=== PATIENT | female | born 1945 | race Caucasian/White ===

== ENCOUNTER 2018-04-28 23:50 | Inpatient (IN) | payer MEDICARE, BC ==
[2018-04-29] MEDS ORDERED: Ondansetron 4 MG/2 ML SDV IVPUSH ONE (00:07)
[2018-04-29] MEDS ORDERED: Sodium Chloride 0.9% 10 ML Syringe FLUSH PRN (00:07)
[2018-04-29] MEDS ORDERED: Famotidine 20 MG/2 ML SDV IVPUSH ONE (00:08)
[2018-04-29] MEDS: Sodium Chloride 0.9% 1,000 ML IV SCH ×2 (00:16→10:16)
--- NOTE | 2018-04-29 01:17 | EDM.PDOC ---
ED HPI GENERAL MEDICAL PROBLEM - General Chief Complaint: Chest Pain Stated Complaint: chest pain vomiting Time Seen by Provider: 04/28/18 23:53 Source of Information: Reports: Patient History Limitations: Reports: No Limitations - History of Present Illness INITIAL COMMENTS - FREE TEXT/NARRATIVE: The patient presents with chest pain. She says the pain started about 1900 last night. The pain is in the center of her chest. She then got nauseated and vomiting about 3 times. She has no shortness of breath. She has no fever, chills, cough, pain or edema in her legs. She has some epigastric discomfort. She did not take aspirin. She has no history of [place] or hypercholesterolemia. She has no history of diabetes. The pain is better now. Onset: Sudden Duration: Hour(s): Location: Reports: Chest Quality: Reports: Sharp Severity: Moderate Improves with: Reports: None Worsens with: Reports: None Associated Symptoms: Reports: Chest Pain. Denies: Cough, Fever/Chills, Headaches, Nausea/Vomiting, Shortness of Breath Chest Pain Score (Numeric/FACES): 3 - Related Data Allergies Allergy/AdvReac Type Severity Reaction Status Date / Time nickel Allergy Cannot Verified 04/29/18 00:03 Remember Home Meds: Home Meds Carboxymethyl/Glycerin/Poly80 [Refresh Optive Advanced Drops] 1 drop EYEBOTH TID 11/27/15 [History] Docusate Sodium [Colace] 100 mg PO DAILY 11/27/15 [History] Eyelid Cleanser [Ocusoft Lid Scrub Plus] 1 dose EYEBOTH DAILY 11/27/15 [History] Multivit-Min/Iron Fum/Folic AC [Hdmll-Okiiyuw-Bkkyyyjz Tablet] 1 tab PO DAILY [History] Polyethylene Glycol 3350 [MiraLAX] 17 g PO DAILY 11/27/15 [History] Vits A and D/White Pet/Lanolin [A + D Ointment] 42.5 gm TP ASDIRECTED PRN [History] amLODIPine [Norvasc] 5 mg PO DAILY 11/27/15 [History] cycloSPORINE [Restasis] 1 each OP BID 11/27/15 [History] lamoTRIgine [Lamictal] 50 mg PO DAILY 11/27/15 [History] lamoTRIgine [Lamictal] 100 mg PO BEDTIME 10/05/16 [History] risperiDONE [Risperdal] 1 mg PO BEDTIME 11/27/15 [History] traZODone 150 mg PO BEDTIME 11/27/15 [History] LORazepam [Ativan] 0.25 mg PO BEDTIME 04/29/18 [History] LORazepam [Ativan] 1 mg PO DAILY 04/29/18 [History] Sennosides [Senna] 2 tab PO DAILY 04/29/18 [History] Past Medical History HEENT History: Reports: Impaired Vision Other HEENT History: allergic conjunctivitis Cardiovascular History: Reports: Hypertension Gastrointestinal History: Reports: Chronic Constipation, Hiatal Hernia, Inflammatory Bowel Disease Musculoskeletal History: Reports: Osteoporosis Psychiatric History: Reports: Bipolar, Mood Swings, Psych Hospitalization(s), Psychosis, Suicide Attempt, Suicidal Ideation Other Psychiatric History: schizophreniform disorder Endocrine/Metabolic History: Reports: Diabetes, Type II Social & Family History - Family History Family Medical History: Noncontributory - Tobacco Use Smoking Status *Q: Former Smoker Used Tobacco, but Quit: Yes Month/Year Tobacco Last Used: 2008 - Caffeine Use Caffeine Use: Reports: Coffee - Recreational Drug Use Recreational Drug Use: No - Living Situation & Occupation Living situation: Reports: Extended Care Facility Occupation: Disabled ED ROS GENERAL - Review of Systems Review Of Systems: See Below Constitutional: Reports: No Symptoms HEENT: Reports: No Symptoms Respiratory: Reports: No Symptoms Cardiovascular: Reports: Chest Pain Endocrine: Reports: No Symptoms GI/Abdominal: Reports: Abdominal Pain, Nausea, Vomiting. Denies: Diarrhea : Reports: No Symptoms Musculoskeletal: Reports: No Symptoms ED EXAM, GENERAL - Physical Exam Exam: See Below Exam Limited By: No Limitations General Appearance: Alert, No Apparent Distress Ears: Normal External Exam Nose: Normal Inspection Head: Atraumatic, Normocephalic Neck: Normal Inspection Respiratory/Chest: No Respiratory Distress, Lungs Clear, Normal Breath Sounds Cardiovascular: Regular Rate, Rhythm, No Edema, No Murmur GI/Abdominal: Soft, No Organomegaly, No Mass, Tender (Mild tenderness to he epigastric region) EKG INTERPRETATION EKG Date: 04/28/18 Time: 23:58 Rhythm: Other (Sinus bradycardia) Rate (Beats/Min): 55 [place]: Normal P-Wave: Present QRS: Normal ST-T: Normal QT: Normal Course - Vital Signs Last Recorded V/S: Last Vital Signs Temp 97.5 F 04/28/18 23:57 Pulse 64 04/28/18 23:57 Resp 20 04/28/18 23:57 BP 125/78 04/28/18 23:57 Pulse Ox 90 L 04/28/18 23:57 - Orders/Labs/Meds Orders: Active Orders 24 hr Category Date Time Status Cardiac Monitoring [RC] . DIRECTED Care 04/29/18 00:07 Active EKG Documentation Completion [RC] STAT Care 04/29/18 00:08 Active Peripheral IV Care [RC] . DIRECTED Care 04/29/18 00:08 Active Abdomen Ltd [US] Stat Exams 04/29/18 07:04 Ordered Sodium Chloride 0.9% [Normal Saline] 1,000 ml Med 04/29/18 00:15 Active IV ASDIRECTED Sodium Chloride 0.9% [Saline Flush] Med 04/29/18 00:07 Active 10 ml FLUSH ASDIRECTED PRN ED Antiemetic Medication Reflex [OM.PC] Stat Oth 04/29/18 00:07 Ordered Peripheral IV Insertion Adult [OM.PC] Stat Oth 04/29/18 00:07 Ordered Medication Orders Sodium Chloride (Normal Saline) 1,000 mls @ 125 mls/hr IV ASDIRECTED MACK Last Admin: 04/29/18 00:16 Dose: 125 mls/hr Sodium Chloride (Saline Flush) 10 ml FLUSH ASDIRECTED PRN PRN Reason: Keep Vein Open Last Admin: 04/29/18 00:18 Dose: 10 ml Labs: Laboratory Tests 04/29/18 04/29/18 04/29/18 Range/Units 00:30 00:30 00:30 WBC 9.05 (3.98-10.04) K/mm3 RBC 4.32 (3.98-5.22) M/mm3 Hgb 13.4 (11.2-15.7) gm/L Hct 39.1 (34.1-44.9) % MCV 90.5 (79.4-94.8) fl MCH 31.0 (25.6-32.2) pg MCHC 34.3 (32.2-35.5) g/dl RDW Std Deviation 40.0 (36.4-46.3) fL Plt Count 90 L (182-369) K/mm3 MPV 11.7 (9.4-12.3) fl Neut % (Auto) 78.8 H (34.0-71.1) % Lymph % (Auto) 10.5 L (19.3-51.7) % [place] % (Auto) 9.0 (4.7-12.5) % Eos % (Auto) 1.3 (0.7-5.8) Baso % (Auto) 0.2 (0.1-1.2) % Neut # (Auto) 7.13 H (1.56-6.13) K/mm3 Lymph # (Auto) 0.95 L (1.18-3.74) K/mm3 [place] # (Auto) 0.81 H (0.24-0.36) K/mm3 Eos # (Auto) 0.12 (0.04-0.36) K/mm3 Baso # (Auto) 0.02 (0.01-0.08) K/mm3 Manual Slide Review Normal smear Sodium 138 (136-145) mEq/L Potassium 3.6 (3.5-5.1) mEq/L Chloride 100 (98-107) mEq/L Carbon Dioxide 27 (21-32) mEq/L Anion Gap 14.6 (5-15) BUN 12 (7-18) mg/dL Creatinine 0.8 (0.55-1.02) mg/dL Est Cr Clr Drug Dosing 49.38 mL/min Estimated GFR (MDRD) > 60 (>60) mL/min BUN/Creatinine Ratio 15.0 (14-18) Glucose 141 H (80-115) mg/dL Calcium 9.3 (8.5-10.1) mg/dL Total Bilirubin 1.0 (0.2-1.0) mg/dL AST 37 (15-37) U/L ALT 34 (14-59) U/L Alkaline Phosphatase 93 (46-116) U/L Troponin I < 0.017 (0.00-0.056) ng/mL Total Protein 7.0 (6.4-8.2) g/dl Albumin 4.1 (3.4-5.0) g/dl Globulin 2.9 gm/dL Albumin/Globulin Ratio 1.4 (1-2) Lipase TNP Meds: Medications Generic Name Dose Route Start Last Admin Trade Name Freq PRN Reason Stop Dose Admin Sodium Chloride 1,000 mls @ 125 mls/hr 04/29/18 00:15 04/29/18 00:16 Normal Saline IV 125 mls/hr ASDIRECTED MACK Administration Sodium Chloride 10 ml 04/29/18 00:07 04/29/18 00:18 Saline Flush FLUSH 10 ml ASDIRECTED PRN Administration Keep Vein Open Discontinued Medications Generic Name Dose Route Start Last Admin Trade Name Freq PRN Reason Stop Dose Admin Famotidine 20 mg 04/29/18 00:08 04/29/18 00:18 Pepcid IVPUSH 04/29/18 00:09 20 mg ONETIME ONE Administration Iopamidol 100 ml 04/29/18 03:58 04/29/18 04:06 Isovue-370 (76%) IV 04/29/18 03:59 100 ml ONETIME ONE Administration Ondansetron HCl 4 mg 04/29/18 00:07 04/29/18 00:18 Zofran IVPUSH 04/29/18 00:08 4 mg ONETIME ONE Administration - Re-Assessments/Exams Free Text/Narrative Re-Assessment/Exam: 04/29/18 01:16 I ordered an IV NS at 125mL/hr, zofran 4mg IV, pepcid 20mg IV, labs, EKG and a CXR. Her EKG shows a sinus bradycardia with no acute changes. Her CXR looks good. 04/29/18 05:45 Her CBC and CMP look good. Her troponin was normal. Her lipase was >1500. She has never had pancreatitis before. She quit drinking 10 years ago. I got a CT and it shows acute pancreatitis, distended gallbladder. Correlate with right upper quadrant US if indicated and cirrhotic liver. I feel she needs to be admitted. I will admit her to the hospitalist service. 04/29/18 07:19 I have talked to Dr Norris and he accepted the patient. I have added an US of her gallbladder. Departure - Departure Time of Disposition: 07:25 Disposition: Admitted As Inpatient 68 Condition: Fair Clinical Impression: Acute pancreatitis Qualifiers: Pancreatitis type: other Acute pancreatitis complication: no infection or necrosis Qualified Code(s): K85.80 - Other acute pancreatitis without necrosis or infection Referrals: Kathya Giles NP [Primary Care Provider] - Forms: ED Department Discharge - My Orders Last 24 Hours: My Active Orders 04/29/18 00:07 Cardiac Monitoring [RC] . DIRECTED Sodium Chloride 0.9% [Saline Flush] 10 ml FLUSH ASDIRECTED PRN ED Antiemetic Medication Reflex [OM.PC] Stat Peripheral IV Insertion Adult [OM.PC] Stat 04/29/18 00:08 EKG Documentation Completion [RC] STAT Peripheral IV Care [RC] . DIRECTED 04/29/18 00:15 Sodium Chloride 0.9% [Normal Saline] 1,000 ml IV ASDIRECTED 04/29/18 07:04 [place] [US] Stat - Assessment/Plan Last 24 Hours: My Active Orders 04/29/18 00:07 Cardiac Monitoring [RC] . DIRECTED Sodium Chloride 0.9% [Saline Flush] 10 ml FLUSH ASDIRECTED PRN ED Antiemetic Medication Reflex [OM.PC] Stat Peripheral IV Insertion Adult [OM.PC] Stat 04/29/18 00:08 EKG Documentation Completion [RC] STAT Peripheral IV Care [RC] . DIRECTED 04/29/18 00:15 Sodium Chloride 0.9% [Normal Saline] 1,000 ml IV ASDIRECTED 04/29/18 07:04 Stunn [US] Stat
[2018-04-29] MEDS ORDERED: Iopamidol 755 Mg/ML 200 ML Bottle IV ONE (03:58)
--- NOTE | 2018-04-29 06:09 | CR ---
Chest: Portable view of the chest was obtained. Comparison: No prior chest x-ray. Heart size and mediastinum are within normal limits. Nodular density is noted within the left base most likely representing slight scarring. Lungs otherwise are clear. Bony structures show previous right shoulder surgery. Mild scoliosis is noted within the spine. Impression: 1. Incidental findings. Nothing acute is identified. Diagnostic code #2
--- NOTE | 2018-04-29 06:36 | CT ---
CT abdomen and pelvis Technique: Multiple axial sections were obtained from above the dome of the diaphragm inferiorly to the pubic symphysis. Intravenous contrast and oral contrast have been given. Delayed images were also obtained through the abdomen and pelvis. Comparison: Prior CT abdomen and pelvis exam of 03/03/13 Visualized lung bases show nothing acute. Liver appears minimally nodular. Mild cirrhosis is difficult to exclude. No focal abnormality is seen within the liver. Spleen appears within normal limits. Adrenal glands show no nodule. Equivocal haziness around the pancreas is seen. Difficult to exclude mild pancreatitis. Gallbladder is mildly dilated. Kidneys show symmetric contrast enhancement. Low density finding is noted within the left kidney measuring 1.0 cm in size. This does not appear as a simple cyst. Kidneys are otherwise unremarkable. Aorta shows no aneurysm. No retroperitoneal adenopathy or mesenteric abnormalities are seen. Fair amount of stool noted within the colon. Appendix not definitely visualized. Delayed images show contrast within the ureters and within the bladder. Bone window settings were reviewed which show mild scattered degenerative change within the spine. Impression: 1. Dilated gallbladder. 2. Small abnormality within the left kidney which is seen on prior CT exam and is therefore incidental. 3. Equivocal pancreatitis please correlate with amylase and lipase. 4. Equivocal mild cirrhosis. Diagnostic code #3 I agree with preliminary report from [facility], finalized on 04/29/18, 6:34 AM Central Time, code #2
--- NOTE | 2018-04-29 08:03 | US ---
Limited abdominal ultrasound: Multiple real-time images of the upper right abdomen were obtained. Comparison: Prior CT abdomen and pelvis exam performed earlier on the same day (3:30 AM). Liver shows no focal abnormality. Multiple gallstones are seen within the gallbladder. Mild pericholecystic fluid is seen. Minimal sludge is noted. Common bile duct measures within normal limits at 8 mm. Right kidney shows no hydronephrosis. Portal vein shows normal hepatopedal flow. Visualized pancreas is within normal limits. Impression: 1. Multiple gallstones with minimal sludge. Gallbladder is somewhat distended. Mild pericholecystic fluid is seen. Findings are suspicious for acute cholecystitis. 2. No biliary duct dilatation is seen. 3. Other portions of the right upper quadrant abdominal ultrasound are unremarkable. Diagnostic code #3
[2018-04-29 08:44] VITALS: BP 135/87
--- NOTE | 2018-04-29 10:01 | PCM.DCSUM1 ---
Discharge Summary - Hospital Course HPI Initial Comments: 72 yo admitted for acute vomiting and abdominal pain. Imaging revealed acute cholecystitis and acutr pancreatitis. Discussed with surgery, . Decision was made to transfer to a higher level of care facility. Accepting physician at [facility]. Diagnosis: Stroke: No - Discharge Data Discharge Date: 04/29/18 Discharge Disposition: DC/Tfer to Acute Hospital 02 Condition: Fair - Discharge Diagnosis/Problem(s) (1) Acute pancreatitis SNOMED Code(s): 718373500 ICD Code: K85.90 - ACUTE PANCREATITIS WITHOUT NECROSIS OR INFECTION, UNSP Status: Acute Current Visit: Yes Qualifiers: Pancreatitis type: other Acute pancreatitis complication: no infection or necrosis Qualified Code(s): K85.80 - Other acute pancreatitis without necrosis or infection - Patient Instructions Diet: NPO Activity: Bedrest - Discharge Plan Home Medications: Home Meds Carboxymethyl/Glycerin/Poly80 [Refresh Optive Advanced Drops] 1 drop EYEBOTH TID 11/27/15 [History] Eyelid Cleanser [Ocusoft Lid Scrub Plus] 1 dose EYEBOTH DAILY 11/27/15 [History] Multivit-Min/Iron Fum/Folic AC [Phbyr-Swjyrvd-Ueweodmb Tablet] 1 tab PO DAILY [History] Vits A and D/White Pet/Lanolin [A + D Ointment] 42.5 gm TP ASDIRECTED PRN [History] amLODIPine [Norvasc] 5 mg PO DAILY 11/27/15 [History] lamoTRIgine [Lamictal] 50 mg PO DAILY 11/27/15 [History] lamoTRIgine [Lamictal] 100 mg PO BEDTIME 11/27/15 [History] risperiDONE [Risperdal] 1 mg PO BEDTIME 11/27/15 [History] traZODone 150 mg PO BEDTIME 11/27/15 [History] LORazepam [Ativan] 0.25 mg PO BEDTIME 04/29/18 [History] LORazepam [Ativan] 1 mg PO DAILY 04/29/18 [History] Sodium Chloride 0.9% [Normal Saline] 1,000 ml IV ASDIRECTED bag 04/29/18 [Rx] Sodium Chloride 0.9% [Saline Flush] 10 ml FLUSH ASDIRECTED PRN syringe [Rx] Forms: ED Department Discharge Referrals: Kathya Giles NP [Primary Care Provider] - - Discharge Summary/Plan Comment DC Time >30 min.: Yes - Patient Data Vitals - Most Recent: Last Vital Signs Temp 98.6 F 04/29/18 08:43 Pulse 76 04/29/18 08:43 Resp 16 04/29/18 08:43 BP 135/87 04/29/18 08:43 Pulse Ox 100 04/29/18 08:43 Weight - Most Recent: 54.431 kg Lab Results - Last 24 hrs: Laboratory Results - last 24 hr 04/29/18 04/29/18 04/29/18 Range/Units 00:30 00:30 00:30 WBC 9.05 (3.98-10.04) K/mm3 RBC 4.32 (3.98-5.22) M/mm3 Hgb 13.4 (11.2-15.7) gm/L Hct 39.1 (34.1-44.9) % MCV 90.5 (79.4-94.8) fl MCH 31.0 (25.6-32.2) pg MCHC 34.3 (32.2-35.5) g/dl RDW Std Deviation 40.0 (36.4-46.3) fL Plt Count 90 L (182-369) K/mm3 MPV 11.7 (9.4-12.3) fl Neut % (Auto) 78.8 H (34.0-71.1) % Lymph % (Auto) 10.5 L (19.3-51.7) % [place] % (Auto) 9.0 (4.7-12.5) % Eos % (Auto) 1.3 (0.7-5.8) Baso % (Auto) 0.2 (0.1-1.2) % Neut # (Auto) 7.13 H (1.56-6.13) K/mm3 Lymph # (Auto) 0.95 L (1.18-3.74) K/mm3 [place] # (Auto) 0.81 H (0.24-0.36) K/mm3 Eos # (Auto) 0.12 (0.04-0.36) K/mm3 Baso # (Auto) 0.02 (0.01-0.08) K/mm3 Manual Slide Review Normal smear Sodium 138 (136-145) mEq/L Potassium 3.6 (3.5-5.1) mEq/L Chloride 100 (98-107) mEq/L Carbon Dioxide 27 (21-32) mEq/L Anion Gap 14.6 (5-15) BUN 12 (7-18) mg/dL Creatinine 0.8 (0.55-1.02) mg/dL Est Cr Clr Drug Dosing 49.38 mL/min Estimated GFR (MDRD) > 60 (>60) mL/min BUN/Creatinine Ratio 15.0 (14-18) Glucose 141 H (80-115) mg/dL Calcium 9.3 (8.5-10.1) mg/dL Total Bilirubin 1.0 (0.2-1.0) mg/dL AST 37 (15-37) U/L ALT 34 (14-59) U/L Alkaline Phosphatase 93 (46-116) U/L Troponin I < 0.017 (0.00-0.056) ng/mL Total Protein 7.0 (6.4-8.2) g/dl Albumin 4.1 (3.4-5.0) g/dl Globulin 2.9 gm/dL Albumin/Globulin Ratio 1.4 (1-2) Lipase TNP Med Orders - Current: Current Medications Sodium Chloride (Normal Saline) 1,000 mls @ 125 mls/hr IV ASDIRECTED MACK Last Admin: 04/29/18 00:16 Dose: 125 mls/hr Sodium Chloride (Saline Flush) 10 ml FLUSH ASDIRECTED PRN PRN Reason: Keep Vein Open Last Admin: 04/29/18 00:18 Dose: 10 ml Discontinued Medications Famotidine (Pepcid) 20 mg IVPUSH ONETIME ONE Stop: 04/29/18 00:09 Last Admin: 04/29/18 00:18 Dose: 20 mg Iopamidol (Isovue-370 (76%)) 100 ml IV ONETIME ONE Stop: 04/29/18 03:59 Last Admin: 04/29/18 04:06 Dose: 100 ml Ondansetron HCl (Zofran) 4 mg IVPUSH ONETIME ONE Stop: 04/29/18 00:08 Last Admin: 04/29/18 00:18 Dose: 4 mg
== END 2018-04-29 10:35 | DRG 439 ==
LOC: JD.ED 23:50 → JD.MS 04-29 08:10
PROVIDERS: ADMIT Family Medicine; ATTEND Family Medicine
DX: K85.80 Other acute pancreatitis without necrosis or infection (principal); F20.89 Other schizophrenia; K81.0 Acute cholecystitis; H54.7 Unspecified visual loss; I10 Essential (primary) hypertension; K58.1 Irritable bowel syndrome with constipation; M81.0 Age-related osteoporosis without current pathological fracture; F31.9 Bipolar disorder, unspecified; E11.9 Type 2 diabetes mellitus without complications; Z87.891 Personal history of nicotine dependence; Z91.048 Other nonmedicinal substance allergy status; R11.2 Nausea with vomiting, unspecified; R07.9 Chest pain, unspecified; Z79.899 Other long term (current) drug therapy
CPT/HCPCS: 36415; 71045; 74177; 76705; 80053; 84484; 85025; 93005; 96361; 96374; 96375; 99285; J2405; J3490; J7040; Q9967; 93010; 99284

== ENCOUNTER 2024-05-14 11:00 | Emergency (ER) | payer MEDICARE, BC ==
[2024-05-14] MEDS ORDERED: Sodium Chloride 0.9% 10 ML Syringe FLUSH PRN (11:35)
[2024-05-14 11:56] LABS: BASOPHILS PERCENT AUTO 0.7 % (0.0-1.0); EOSINOPHILS ABSOLUTE AUTO 0.2 K/mm3 (0.0-0.4); EOSINOPHILS PERCENT AUTO 2.9 % (0.0-6.0); HEMATOCRIT 41.8 % (37.0-47.0); HEMOGLOBIN 14.4 gm/dl (12.0-16.0); IMMATURE GRAN ABSOLUTE AUTO 0.02 K/mm3 (0.00-0.05); IMMATURE GRAN PERCENT AUTO 0.4 % (0.0-0.4); LYMPHOCYTES ABSOLUTE AUTO 1.3 K/mm3 (1.0-4.8); LYMPHOCYTES PERCENT AUTO 24.5 % (24.0-44.0); MEAN CORPUSCULAR HEMOGLOBIN 31.2 pg (28.0-32.0); MEAN CORPUSCULAR HGB CONC 34.4 g/dl (32.0-36.0); MEAN CORPUSCULAR VOLUME 90.7 fl (83.0-99.0); MEAN PLATELET VOLUME 12.4 fl (9.4-12.3); MONOCYTES ABSOLUTE AUTO 0.5 K/mm3 (0.0-0.8); MONOCYTES PERCENT AUTO 9.2 % (0.0-8.0); NEUTROPHILS ABSOLUTE AUTO 3.4 K/mm3 (1.8-7.7); NEUTROPHILS PERCENT AUTO 62.3 % (41.0-71.0); PLATELET COUNT,PLT 103 K/mm3 (150-400); RED BLOOD CELL COUNT 4.61 M/mm3 (4.10-5.30); WHITE BLOOD CELL COUNT,WBC 5.43 K/mm3 (3.9-11.3)
[2024-05-14] MEDS: Sodium Chloride 0.9% 500 ML IV ONE (12:20)
[2024-05-14 12:29] LABS: A/G RATIO 1.1 (1-2); ALANINE AMINOTRANSFERASE,ALT 28 U/L (14-59); ALBUMIN 3.7 g/dl (3.4-5.0); ALKALINE PHOSPHATASE 99 U/L (46-116); ANION GAP 14.5 (5-15); BILIRUBIN TOTAL 0.8 mg/dL (0.2-1.0); BLOOD UREA NITROGEN,BUN 20 mg/dL (7-18); BUN/CREATININE RATIO 22.2 (14-18); C-REACTIVE PROTEIN 0.32 mg/dL (<0.30); CALCIUM 9.3 mg/dL (8.5-10.1); CARBON DIOXIDE,CO2 23 mEq/L (21-32); CHLORIDE,CL 103 mEq/L (98-107); CREATININE 0.9 mg/dL (0.55-1.02); ESTIMATED GFR 66 mL/min (>60); GLUCOSE RANDOM 96 mg/dL (70-99); MAGNESIUM 2.1 mg/dL (1.8-2.4); SODIUM,NA 136 mEq/L (136-145)
[2024-05-14 12:33] LABS: ASPARTATE AMNIOTRANSFERASE,AST 29 U/L (15-37); POTASSIUM,K 4.5 mEq/L (3.5-5.1)
[2024-05-14 13:51] LABS: APPEARANCE,URINE CLEAR (Clear); BILIRUBIN,URINE NEGATIVE (Negative); COLOR,URINE YELLOW (Yellow); GLUCOSE,URINE NEGATIVE (Negative); KETONES,URINE NEGATIVE (Negative); LEUKOCYTE ESTERASE,URINE NEGATIVE (Negative); NITRITE,URINE NEGATIVE (Negative); OCCULT BLOOD,URINE NEGATIVE (Negative); PROTEIN,URINE NEGATIVE (Negative); UROBILINOGEN,URINE 0.2 (0.2-1.0)
[2024-05-14 14:59] VITALS: BP 139/83; PULSE 65
== END 2024-05-14 14:50 | disposition home or self-care (01) ==
LOC: JD.ED 11:00
DX: K59.00 Constipation, unspecified (principal); I10 Essential (primary) hypertension; E11.9 Type 2 diabetes mellitus without complications; Z91.048 Other nonmedicinal substance allergy status; Z79.899 Other long term (current) drug therapy
CPT/HCPCS: 36415; 74018; 76705; 80053; 81003; 83690; 83735; 85025; 86140; 99284; J7030